=== PATIENT | female | born 1980 | race Caucasian/White ===

== ENCOUNTER → 2018-04-16 12:38 | Outpatient (CLI) | payer OTHER, SELFPAY ==
--- NOTE | 2018-04-16 12:43 | DI.MRI.S_ITS ---
PROCEDURE: MR WRIST RT W CON INDICATIONS: STRAIN OF MUSCLE IN R WRIST TECHNIQUE: After the administration of 3-4 mL of dilute intra-articular Gadolinium contrast into the radiocarpal compartment, coronal T1 spin echo with fat saturation and T2 fast spin echo with fat saturation, axial T1 spin echo and T2 fast spin echo with fat saturation, sagittal T1 spin echo with and without fat saturation through the wrist. COMPARISON: [facility], CR, XR WRIST 3VW RT, 09/09/2016, 10:19. [facility] Outside Film, MR, MR WRIST RIGHT WITHOUT CONTRAST, 11/13/2017, 8:27. [facility], , [place] WRIST INJECTION MR/CT RT, 04/16/2018, 11:29. FINDINGS: Image quality: Excellent. Bones and cartilage: The carpal bones are normally aligned. No bone marrow contusions or fractures. No evidence for avascular necrosis. Overlying cartilage surfaces appear normal. Carpal ligaments: The scapholunate and lunotriquetral ligaments appear intact, without gadolinium extravasation into the mid-carpal compartment. The radioscaphocapitate and radiolunotriquetral ligaments appear intact. The arcuate ligament and short radiolunate ligament also appear normal. The dorsal intercarpal and radiotriquetral ligaments appear intact. On sagittal images, the pisohamate ligament appears intact. Triangular fibrocartilage complex: The triangular fibrocartilage disc, with its styloid and foveal lamina, appears intact. No gadolinium extravasation into the distal radioulnar joint. The adjacent meniscal homolog appears normal. The ulnar collateral ligament appears intact. The extensor carpi ulnaris tendon is normal in location and morphology. Tendons and soft tissues: The carpal tunnel structures appear normal, including the median nerve. The ulnar nerve appears normal within Guyon's canal. All six extensor tendon compartments demonstrate normal morphology, with trace tendon sheath fluid is probably related to injection procedure. No soft tissue ganglion cysts. Previously seen prominent multiloculated or multiple cysts of the lung the palmar aspect of the distal radius are no longer seen. IMPRESSION: TFCC appears grossly intact. No definite articular cartilage loss at the proximal lunate, distal radius and ulna. Cystic-appearing foci, presumed large ganglion cysts, along the palmar aspect of the distal radius no longer visualized since 11/13/17. Dictated by: Tommy Benavidez M.D. on 04/16/2018 at 14:42 Approved by: Tommy Benavidez M.D. on 04/16/2018 at 14:55
--- NOTE | 2018-04-16 12:44 | DI.RAD.S_ITS ---
PROCEDURE: [place] WRIST INJECTION MR/CT RT INDICATIONS: STRAIN OF MUSCLE IN R WRIST TECHNIQUE: After informed consent had been obtained, the wrist was examined fluoroscopically, and a site chosen for injection of the radiocarpal compartment from a dorsal approach. Skin was prepped and draped in a sterile fashion and 1% lidocaine infiltrated from the skin down to the articular surface. A hypodermic needle was then introduced into the articular space and a modest amount of contrast medium was instilled confirming intra-articular needle tip placement. This was followed by approximately 4 mL of a dilute gadolinium solution. Needle was removed and dressing was applied. The patient experienced no complications throughout the procedure and left the fluoroscopic suite in no apparent distress. FINDINGS: A single fluoroscopic spot image demonstrates intra-articular location to injected iodinated contrast. IMPRESSION: Successful fluoroscopic-guided administration of dilute Gadolinium solution for wrist MR arthrogram. Dictated by: Dick Kunz M.D. on 04/16/2018 at 15:06 Approved by: Dick Kunz M.D. on 04/16/2018 at 15:06
== END ==
PROVIDERS: Visit Provider Orthopaedic Surgery
DX: S66.911A Strain of unspecified muscle, fascia and tendon at wrist and hand level, right hand, initial encounter (principal)
CPT/HCPCS: 20605; 73222; 77002